=== PATIENT | male | born 1955 | race Hispanic/Latino ===

== ENCOUNTER → 2025-03-18 | Outpatient (CLI) | payer OTHER ==
[~2025-03-18] MED LIST: IOHEXOL 350 MG/ML 100ML INFUS..BTL IV ONE; IOHEXOL-350 50ML VIAL IV ONE
--- NOTE | 2025-03-19 04:59 | HMCIMG ---
EXAM: CTA Aorta Runoff with and without IV contrast CLINICAL HISTORY: Peripheral vascular disease. TECHNIQUE: Thin collimated axial CTA images of the abdomen, pelvis and bilateral lower extremities were obtained with sagittal and coronal reformatted images also submitted. CT scan done according to ALARA (As Low As Reasonably Achievable). Intravenous contrast was administered. COMPARISON: None. FINDINGS: Abdominal aorta: Tiny calcific plaques in the abdominal aorta without luminal stenosis. No luminal stenosis of the celiac trunk, superior mesenteric artery, inferior mesenteric artery and bilateral renal arteries. Bilateral accessory renal arteries. Aortic Bifurcation: Unremarkable. Bilateral Common, origins of the internal, and external Iliac arteries: Tiny calcific atheromatous plaques without luminal stenosis. Bilateral Common femoral, origin of the deep femoral, and Superficial femoral arteries: Unremarkable bilateral common femoral arteries. Diffuse circumferential calcified atheromatous plaques in the bilateral superficial femoral and deep femoral arteries without luminal stenosis. Bilateral Popliteal arteries: Diffuse circumferential atheromatous plaques in the bilateral popliteal arteries without luminal stenosis. Tibio-peroneal trifurcation: Unremarkable. Anterior Tibial, Posterior Tibial, and Peroneal arteries: Diffuse circumferential plaques in the bilateral anterior tibial, posterior tibial and peroneal arteries with 40%-50% minimal stenosis, however, preserved vascular opacification. Dorsalis Pedis artery: Unremarkable. Normal 3-vessel flow to the foot. Osseous and Soft tissue structures: No acute abnormality. Mild degenerative osseous changes.2.1 x 1.1 cm heterotopic ossification in the proximal left achilles tendon. Unremarkable lung bases. Coronary artery calcification. Small hiatus hernia. There is no abnormality in the gallbladder, spleen, pancreas, adrenals or kidneys. Mild fatty liver. There is no abnormal bowel wall thickening. No obstruction or ileus. The appendix is normal. There is diffuse fecal loading of the large bowel loops. Minimally distended urinary bladder. Mild prostatomegaly. No significant abdominal lymphadenopathy. No ascites or pneumoperitoneum. IMPRESSION: 1. Diffuse circumferential calcified atheromatous plaques with moderate (40-50%) stenosis in the bilateral anterior tibial, posterior tibial and peroneal arteries, with preserved vascular opacification and normal 3-vessel flow to the feet. 2. Mild calcific atheromatous disease without significant stenosis in the abdominal aorta, iliac, femoral, and popliteal arteries. 3. Bilateral accessory renal arteries. 4. Coronary artery calcification. 5. Small hiatal hernia. 6. Mild fatty liver. 7. Mild prostatomegaly. 8. 2.1 x 1.1 cm heterotopic ossification in the proximal left achilles tendon. /Muir
== END | disposition home or self-care (01) ==
LOC: RAH 09:11
PROVIDERS: ATTEND Internal Medicine Cardiovascular Disease
DX: I70.203 Unspecified atherosclerosis of native arteries of extremities, bilateral legs (principal); I25.10 Atherosclerotic heart disease of native coronary artery without angina pectoris; K44.9 Diaphragmatic hernia without obstruction or gangrene; K76.0 Fatty (change of) liver, not elsewhere classified; N40.0 Benign prostatic hyperplasia without lower urinary tract symptoms; I70.0 Atherosclerosis of aorta; M79.89 Other specified soft tissue disorders; M67.874 Other specified disorders of tendon, left ankle and foot
CPT/HCPCS: 75635; Q9967 ×2

== ENCOUNTER → 2025-05-15 | Outpatient (CLI) | payer OTHER ==
--- NOTE | 2025-05-16 14:48 | HMCIMG ---
Patient Study Name: PETRA CAMPO Date: May 15, 2025, 7:02:38 PM IST Modality Type: CT Gender: M Description: CT ANGIO ABD AORTA IF MERYL : 55 Referring Clinician: GOKUL JORDAN Institution: [facility] [place] Inst.: [facility] EXAMINATION: CT ANGIOGRAM OF ABDOMEN AND PELVIS AND RUNOFFS OF THE BILATERAL LOWER EXTREMITIES. CLINICAL HISTORY: Peripheral vascular disease. COMPARISON: Prior CTA on 03/18/2025. TECHNIQUE: MDCT angiogram of the abdominal aortic vessels was performed after administration of intravenous contrast. FINDINGS: There are atheromatous wall calcification of the aorta, iliac arteries, and both lower limb arteries. There is no aneurysm or dissection. There is no stenosis or occlusion. The celiac and superior mesenteric arteries, are normal in caliber. There is no stenosis or occlusion. The angle between superior mesenteric artery and aorta is normal. Bilateral renal arteries are normal in caliber. There is no stenosis or occlusion. The inferior mesenteric arteries are normal in caliber. Bifurcation morphology is normal. There is no stenosis or occlusion. The bilateral common iliac arteries are normal in caliber. No stenosis or occlusion. The bilateral external iliac arteries are normal in caliber. Their branches are normal, and the bilateral internal iliac arteries are normal; there is no stenosis or occlusion. The bilateral superficial femoral arteries are normal in caliber. There is no stenosis or occlusion. The bilateral profunda femoris and popliteal arteries are normal in size and caliber. There is no stenosis or occlusion. There are atheromatous wall calcifications of the anterior tibial, posterior tibial and peroneal arteries with 40-50% luminal stenosis with preserved vascular opacifications. Within the abdomen and pelvis, hepatic steatosis; gallbladder, pancreas, spleen, adrenal glands, and kidneys are within normal limits; bowel loops are normal in caliber without evidence of obstruction, ileus, or bowel wall thickening, and the appendix is normal; and urinary bladder, prostate, and seminal vesicles appear normal in caliber. Included chest reveals subpleural ground glassing with interseptal thickening in both lower lobes. There is a small hiatus hernia. Stable atrophic ossification of the left Achilles tendon. IMPRESSION: Atheromatous wall calcification of the aorta, iliac arteries, and both lower limb arteries with stable stenosis of the bilateral tibio-peroneal trunk ??? [id number] peripheral vascular disease. /[place]
== END | disposition home or self-care (01) ==
LOC: RAH 08:10
PROVIDERS: ATTEND Internal Medicine Cardiovascular Disease
DX: I65.22 Occlusion and stenosis of left carotid artery (principal); I70.0 Atherosclerosis of aorta; K76.0 Fatty (change of) liver, not elsewhere classified; K44.9 Diaphragmatic hernia without obstruction or gangrene; M67.88 Other specified disorders of synovium and tendon, other site; I73.9 Peripheral vascular disease, unspecified
CPT/HCPCS: 75635; Q9967 ×2